=== PATIENT | female | born 1965 | race Two or more races ===

== ENCOUNTER 2019-11-16 22:10 | Inpatient (IN) | payer OTHER ==
[~2019-11-16] VITALS: Ht 172.7 cm; Wt 127.0 kg
[2019-11-23] MEDS ORDERED: INTESTINEX680 M1 PO (16:33)
[2019-11-23] MEDS ORDERED: LEVAQUIN750 MG PO (16:33)
== END 2019-11-23 17:10 | disposition home or self-care (01) | DRG 690 ==
LOC: ER 22:10 → SURH 11-17 12:05 → SEC-K 11-17 12:05 → SURH 11-17 19:32
PROVIDERS: ADMIT Internal Medicine; ATTEND Internal Medicine
PROC: BW21ZZZ Computerized Tomography (CT Scan) of Abdomen and Pelvis (ICD-10-PCS; principal; 2019-11-17)
PROC: 8E0ZXY6 Isolation (ICD-10-PCS; 2019-11-17)
PROC: BT43ZZZ Ultrasonography of Bilateral Kidneys (ICD-10-PCS; 2019-11-19)
DX: N10 Acute pyelonephritis (principal); N17.8 Other acute kidney failure; N13.39 Other hydronephrosis; E86.0 Dehydration; E66.8 Other obesity; Z20.828 Contact with and (suspected) exposure to other viral communicable diseases